=== PATIENT | male | born 2000 | race Caucasian/White ===

== ENCOUNTER 2022-07-03 15:15 | Emergency (ER) | payer SELFPAY ==
[~2022-07-03 15:15] MED LIST: CLARITIN10 M2 PO; PREDNISONE 20MG20 MG PO; [UNRECOGNIZED DRUG - OTHER] TOP
== END 2022-07-03 17:27 | disposition home or self-care (01) ==
LOC: FER 15:15
DX: S90.01XA Contusion of right ankle, initial encounter (principal); W22.8XXA Striking against or struck by other objects, initial encounter; Y92.69 Other specified industrial and construction area as the place of occurrence of the external cause; Y99.0 Civilian activity done for income or pay
CPT/HCPCS: 73610